=== PATIENT | female | born 1975 | race Hispanic/Latino ===

== ENCOUNTER 2020-06-15 10:44 | Emergency (ER) | payer BC, SELFPAY ==
[2020-06-15] MEDS ORDERED: Morphine 4 MG/ML VIAL ONE (11:27)
[2020-06-15] MEDS ORDERED: Ondansetron PF 4 MG/2 ML Vial ONE (11:27)
[2020-06-15 11:43] LABS: #Lymphocytes 3.6 thou/uL (1.20-3.40); #Monocytes 0.6 thou/uL (0.11-0.59); #Neutrophils 5.4 thou/uL (1.40-6.50); %Basophils 0.2 % (0.0-1.0); %Eosinophils 0.3 % (0.0-10.0); %Lymphocytes 36.8 % (21.0-51.0); %Monocytes 6.5 % (0.0-10.0); %Neutrophils 56.3 % (42.0-75.0); Hemoglobin 10.9 g/dL (12.0-16.0); Mean Corpuscular HGB CONC 31.2 g/dL (32.0-36.0); Mean Corpuscular Hemoglobin 23.4 pg (27.0-31.0); Mean Platelet Volume 7.7 fL (7.4-10.4); Platelet Count 286 thou/uL (130-400); RBC Distribution Width 16.5 % (11.5-14.5); Red Blood Cell (RBC) Count 4.65 mill/uL (4.20-5.40); White Blood Cell (WBC) Count 9.7 thou/uL (4.8-10.8)
[2020-06-15 11:46] LABS: ALT (SGPT) 20 U/L (8-55); AST (SGOT) 14 U/L (5-34); Alkaline Phosphatase 82 U/L (40-110); Anion Gap 14 mmol/L (10-20); BUN (Urea Nitrogen) 14 mg/dL (7.0-18.7); Bilirubin, Total 0.3 mg/dL (0.2-1.2); Calc. Creatinine Clearance 0 mL/min (70-130); Calcium 9.4 mg/dL (7.8-10.44); Carbon Dioxide 24 mmol/L (22-29); Chloride 103 mmol/L (98-107); Estimated GFR-MDRD 89; Globulin 3.5 g/dL (2.4-3.5); Glucose 92 mg/dL (70-105); Protein, Total 7.5 g/dL (6.0-8.3); Sodium 137 mmol/L (136-145)
[2020-06-15 12:10] LABS: Hypochromia SLIGHT = 6-15 cells (100X) (0-5/hpf); MDiff Complete? YES; Microcytosis SLIGHT = 6-15 cells (100X) (0-5/hpf); Platelet Morphology Comment Appears Adequate; Polychromasia SLIGHT = 2-3 cells (100X) (0-2/hpf)
[2020-06-15 12:30] LABS: Bacteria/HPF None Seen HPF (None Seen); Bilirubin Negative (Negative); Blood, Urine 3+ (Negative); Clarity Turbid (Clear); Glucose, Urine (Dipstick) Normal (Negative); Ketone, Urine Negative (Negative); Leukocyte 75 Leu/uL (Negative); Nitrite Negative (Negative); Protein, Urine (Dipstick) 100 mg/dL (Neg-Trace); RBC/HPF Greater than 50 HPF (0-3); Squamous Epithelial 0-3 HPF (0-3); Urobilinogen Normal mg/dL (Less than 2)
--- NOTE | 2020-06-15 12:39 | ULT ---
Exam: Pelvic ultrasound HISTORY: Vaginal bleeding since 05/12/2020. COMPARISON: None TECHNIQUE: Multiple grayscale and color Doppler images were obtained in a transabdominal and transvag inal pelvic ultrasound. FINDINGS: CERVIX: Mild heterogeneity in the region of the endocervical canal UTERUS: Normal in size without focal abnormality. ENDOMETRIAL STRIPE: Thickened and heterogeneous endometrium with endometrial stripe thickness measuri ng 1.4 cm. Heterogeneity may be related to hemorrhage given patient's history of vaginal bleeding. No free fluid is present. RIGHT OVARY: A hypoechoic structure is seen in the right adnexal region measuring 3.5 cm likely corre sponding to patient's right ovary. This is only seen on transabdominal imaging. Flow is unable to be detected, but this is likely related to difficulty in imaging of the right ovary. LEFT OVARY:A circumscribed anechoic cystic structure is seen in the left ovary measuring 2.6 cm demon strating sonographic characteristics compatible with a cyst. Doppler evaluation with spectral analysis and color flow demonstrates flow in the left ovary. IMPRESSION: 1. Thickened heterogeneous irregular endometrium. Heterogeneity may be related to hemorrhage given baldemar zuleta's history of vaginal bleeding. Heterogeneity does partially extend into the endocervical canal. Gynecological consultation is suggested. 2. Right ovary not well imaged. 3. Left ovarian cyst.
== END 2020-06-15 14:30 | disposition home or self-care (01) ==
LOC: ERS 10:44
DX: N92.1 Excessive and frequent menstruation with irregular cycle (principal); E78.5 Hyperlipidemia, unspecified; E78.00 Pure hypercholesterolemia, unspecified; D64.9 Anemia, unspecified; Z79.899 Other long term (current) drug therapy
CPT/HCPCS: 76856; 80053; 81003; 81015; 85025; 86850; 86900; 86901; 96374; 96375; J2270; J2405

== ENCOUNTER 2021-07-18 15:09 | Outpatient (CLI) | payer BC | END 2021-07-18 15:10 | disposition home or self-care (01) | LOC: BICULT 15:09 | PROVIDERS: ATTEND Nurse Practitioner Family | DX: R10.2 Pelvic and perineal pain (principal); R93.89 Abnormal findings on diagnostic imaging of other specified body structures | CPT/HCPCS: 76856 ==

== ENCOUNTER 2022-08-27 19:10 | Emergency (ER) | payer BC, OTHER ==
[2022-08-27 20:19] LABS: #Eosinphils 0.1 thou/uL (0.0-0.7); #Lymphocytes 2.9 thou/uL (1.20-3.40); #Monocytes 0.7 thou/uL (0.11-0.59); #Neutrophils 3.4 thou/uL (1.40-6.50); %Basophils 0.4 % (0.0-1.0); %Eosinophils 1.4 % (0.0-10.0); %Lymphocytes 40.5 % (21.0-51.0); %Monocytes 9.2 % (0.0-10.0); %Neutrophils 48.5 % (42.0-75.0); Hemoglobin 11.8 g/dL (12.0-16.0); Mean Corpuscular HGB CONC 32.7 g/dL (32.0-36.0); Mean Corpuscular Hemoglobin 26.3 pg (27.0-31.0); Mean Corpuscular Volume 80.5 fl (78.0-98.0); Mean Platelet Volume 7.1 fL (7.4-10.4); Platelet Count 247 10x3/uL (130-400); RBC Distribution Width 13.7 % (11.5-14.5); Red Blood Cell (RBC) Count 4.49 mill/uL (4.20-5.40)
[2022-08-27 20:33] LABS: ALT (SGPT) 51 U/L (8-55); AST (SGOT) 50 U/L (5-34); Alkaline Phosphatase 100 U/L (40-110); Anion Gap 14 mmol/L (10-20); BUN (Urea Nitrogen) 12 mg/dL (7.0-18.7); Bilirubin, Total 0.4 mg/dL (0.2-1.2); Calc. Creatinine Clearance 0 mL/min (70-130); Calcium 9.6 mg/dL (7.8-10.44); Carbon Dioxide 21 mmol/L (22-29); Chloride 104 mmol/L (98-107); Estimated GFR 94; Globulin 3.8 g/dL (2.4-3.5); Glucose 106 mg/dL (70-105); Potassium 4.2 mmol/L (3.5-5.1); Protein, Total 7.8 g/dL (6.0-8.3); Sodium 135 mmol/L (136-145)
[2022-08-27] MEDS ORDERED: methylPREDNISolone Sod Succ/PF 125 MG/2 ML VIAL ONE (22:45)
[2022-08-27] MEDS ORDERED: Metoclopramide HCl 10 MG/2 ML VIAL ONE (22:45)
[2022-08-27] MEDS ORDERED: diphenhydrAMINE 50 MG/ML VIAL ONE (22:45)
== END 2022-08-28 01:11 | disposition home or self-care (01) ==
LOC: ERS 19:10
DX: R51.9 Headache, unspecified (principal); E78.00 Pure hypercholesterolemia, unspecified
CPT/HCPCS: 36415; 70450; 80053; 85025; 96365; 96375; J1200; J2765; J2930

== ENCOUNTER 2022-09-01 10:15 | Emergency (ER) | payer OTHER ==
[2022-09-01 11:10] LABS: #Basophils 0.1 thou/uL (0.0-0.2); #Lymphocytes 3.8 thou/uL (1.20-3.40); #Monocytes 0.6 thou/uL (0.11-0.59); #Neutrophils 7.3 thou/uL (1.40-6.50); %Basophils 0.5 % (0.0-1.0); %Eosinophils 0.1 % (0.0-10.0); %Lymphocytes 32.5 % (21.0-51.0); %Monocytes 5.1 % (0.0-10.0); %Neutrophils 61.9 % (42.0-75.0); Hemoglobin 12.7 g/dL (12.0-16.0); Mean Corpuscular HGB CONC 33.3 g/dL (32.0-36.0); Mean Corpuscular Hemoglobin 26.8 pg (27.0-31.0); Mean Corpuscular Volume 80.6 fl (78.0-98.0); Mean Platelet Volume 6.9 fL (7.4-10.4); Platelet Count 397 10x3/uL (130-400); RBC Distribution Width 14.1 % (11.5-14.5); Red Blood Cell (RBC) Count 4.74 mill/uL (4.20-5.40); White Blood Cell (WBC) Count 11.8 10x3/uL (4.8-10.8)
[2022-09-01 11:29] LABS: ALT (SGPT) 49 U/L (8-55); AST (SGOT) 16 U/L (5-34); Albumin 4.1 g/dL (3.5-5.0); Alkaline Phosphatase 87 U/L (40-110); Anion Gap 15 mmol/L (10-20); BUN (Urea Nitrogen) 15 mg/dL (7.0-18.7); Bilirubin, Total 0.4 mg/dL (0.2-1.2); Calc. Creatinine Clearance 0 mL/min (70-130); Calcium 9.3 mg/dL (7.8-10.44); Carbon Dioxide 19 mmol/L (22-29); Chloride 106 mmol/L (98-107); Estimated GFR 109; Globulin 3.9 g/dL (2.4-3.5); Glucose 95 mg/dL (70-105); Potassium 4.4 mmol/L (3.5-5.1); Sodium 136 mmol/L (136-145)
[2022-09-01] MEDS ORDERED: Lidocaine 1% MPF 2 ML VIAL ONE (12:46)
[2022-09-01] MEDS ORDERED: Metoclopramide HCl 10 MG/2 ML VIAL ONE (12:46)
[2022-09-01] MEDS ORDERED: Ketorolac Tromethamine 30 MG/ML VIAL ONE (12:46)
[2022-09-01 13:20] LABS: Magnesium 1.9 mg/dL (1.6-2.6)
== END 2022-09-01 15:47 | disposition home or self-care (01) ==
LOC: ERS 10:15
DX: R07.9 Chest pain, unspecified (principal); M62.830 Muscle spasm of back; D72.829 Elevated white blood cell count, unspecified; E78.00 Pure hypercholesterolemia, unspecified
CPT/HCPCS: 36415; 71045; 80053; 83735; 84484; 85025; 93005; 96365; 96372; 96375; J1885; J2765

== ENCOUNTER 2023-06-24 13:05 | Outpatient (CLI) | payer OTHER | END 2023-06-24 13:06 | disposition home or self-care (01) | LOC: RAD 13:05 | PROVIDERS: ATTEND Internal Medicine | DX: M54.2 Cervicalgia (principal); M46.02 Spinal enthesopathy, cervical region | CPT/HCPCS: 72040 ==

== ENCOUNTER 2023-08-13 15:41 | Outpatient (CLI) | payer OTHER | END 2023-08-13 15:42 | disposition home or self-care (01) | LOC: BICULT 15:41 | PROVIDERS: ATTEND Nurse Practitioner Family | DX: D64.9 Anemia, unspecified (principal); N83.202 Unspecified ovarian cyst, left side | CPT/HCPCS: 76856 ==

== ENCOUNTER 2025-02-22 23:07 | Emergency (ER) | payer BC, SELFPAY ==
[2025-02-23] MEDS ORDERED: Acetaminophen 500 MG TAB ONE (01:15)
[2025-02-23] MEDS ORDERED: Ketorolac Tromethamine 30 MG (1 mL) VIAL ONE (01:15)
== END 2025-02-23 01:30 | disposition home or self-care (01) ==
LOC: ERS 23:07
DX: K64.9 Unspecified hemorrhoids (principal); I10 Essential (primary) hypertension
CPT/HCPCS: 96372; 99283; J1885